=== PATIENT | female | born 1960 | race Caucasian/White ===

== ENCOUNTER 2018-08-30 19:36 | Emergency (ER) | payer SELFPAY ==
[~2018-08-30] VITALS: Ht 182.9 cm; Wt 94.4 kg
[2018-08-30 19:38] VITALS: BP 176/94
[2018-08-30] MEDS ORDERED: BENAZ (19:39)
[2018-08-30] MEDS ORDERED: QVAR (19:39)
[2018-08-30] MEDS ORDERED: FLONASE (19:39)
[2018-08-30] MEDS ORDERED: ALBUTEROL/IPRATROPIUM 2.5MG/0.5MG, 3 ML NPPB ONE (20:00)
[2018-08-30] MEDS ORDERED: ALBUTEROL/IPRATROPIUM 2.5MG/0.5MG, 3 ML ONE (20:13)
== END 2018-08-30 21:49 | disposition home or self-care (01) ==
LOC: ED 20:50
DX: J20.9 Acute bronchitis, unspecified (principal); J45.909 Unspecified asthma, uncomplicated; H66.91 Otitis media, unspecified, right ear; Z87.891 Personal history of nicotine dependence
CPT/HCPCS: 71046; 94640; 99283; J7620

== ENCOUNTER 2020-01-01 06:21 | Emergency (ER) | payer MEDICARE ==
[~2020-01-01] VITALS: Ht 182.9 cm; Wt 96.2 kg
[~2020-01-01 06:21] MED LIST: BENAZ; FLONASE; QVAR
--- NOTE | 2020-01-01 06:46 | NUR ---
Patient presents to ER c/o RLQ abd pain x2 days. Patient states she has a hx of liver problems but this pain is just below it. Patient c/o nausea and diarrhea. Denies vomiting. Pain does not radiate. It is constant and movement makes the pain worse. Patient is in NAD. Respirations even and unlabored.
[2020-01-01] MEDS ORDERED: SODIUM CHLORIDE 0.9% 1,000ML IVBOLUS ONE (07:00)
[2020-01-01] MEDS ORDERED: MORPHINE SULFATE 4 MG/ML, 1ML IVPush PRN (07:00)
[2020-01-01] MEDS ORDERED: ONDANSETRON 2MG/ML, 2ML IVPush ONE (07:00)
[2020-01-01] MEDS ORDERED: SODIUM CHLORIDE FLUSH 10ML SYR IVF ONE (07:00)
[2020-01-01] MEDS ORDERED: ONDANSETRON 2MG/ML, 2ML ONE (07:06)
[2020-01-01] MEDS ORDERED: MORPHINE SULFATE 4 MG/ML, 1ML ONE (07:06)
--- NOTE | 2020-01-01 07:10 | NUR ---
received report from kiara ch.
[2020-01-01 07:18] LABS: MICROSCOPIC INDICATED
[2020-01-01 07:38] LABS: HCG UR SG 1.033 (1.003-1.030)
[2020-01-01 07:48] LABS: BASOPHILS # (AUTO) 0.03 x10^3/uL (0-0.1); BASOPHILS % (AUTO) 0 % (0-1); EOSINOPHILS # (AUTO) 0.78 x10^3/uL (0-0.4); EOSINOPHILS % (AUTO) 8 % (1-7); LYMPHOCYTES # (AUTO) 1.88 x10^3/uL (1-3.4); LYMPHOCYTES % (AUTO) 19 % (22-44); MD NO; MEAN CORPUSCULAR HEMOGLOBIN 29.7 pg (27.0-34.8); MEAN CORPUSCULAR HGB CONC 33.4 g/dL (32.4-35.8); MEAN CORPUSCULAR VOLUME 88.9 fL (80-100); MONOCYTES # (AUTO) 0.84 x10^3/uL (0.2-0.8); MONOCYTES % (AUTO) 8 % (2-9); NEUTROPHILS # (AUTO) 6.46 x10^3/uL (1.8-6.8); NEUTROPHILS % (AUTO) 65 % (42-75); PLATELET COUNT 242 x10^3/uL (130-400); RED BLOOD COUNT 4.41 x10^6/uL (3.82-5.3); RED CELL DISTRIBUTION WIDTH 14.3 % (9.6-15.2)
[2020-01-01] MEDS ORDERED: HYDROmorphone 1 MG/ML, 1ML INJ ONE (07:50)
[2020-01-01 07:59] LABS: CULTURE INDICATED? YES
[2020-01-01 08:00] LABS: ALANINE AMINOTRANSFERASE 18 U/L (12-78); ALBUMIN 3.5 g/dL (3.4-5.0); ANION GAP 5 mmol/L (5-15); CALCIUM 8.8 mg/dL (8.5-10.1); CHLORIDE 109 mmol/L (98-107); CREATININE 1.14 mg/dL (0.55-1.02)
[2020-01-01] MEDS ORDERED: HYDROmorphone 1 MG/ML, 1ML INJ IV ONE (08:00)
[2020-01-01 08:02] LABS: ALKALINE PHOSPHATASE 88 U/L (45-117); BILIRUBIN,TOTAL 0.2 mg/dL (0.2-1.0); TOTAL PROTEIN 7.3 g/dL (6.4-8.2)
--- NOTE | 2020-01-01 08:19 | NUR ---
pt on phone, vss, respirations even and unlabored, no signs of distress.
--- NOTE | 2020-01-01 08:25 | NUR ---
BREAK RN FOR PRIMARY RN'S MARICARMEN. PT RESTING COMFORTABLY ON ED GURNERY PLAYING WITH OWN CELL PHONE. ALL NEEDS MET AND ADDRESSED, AWAITING RECHECK FROM ERP. VSS. FALL PRECAUTIONS IN PLACE. CALL LIGHT IN REACH
--- NOTE | 2020-01-01 08:37 | NUR ---
REPORT AND CARE BACK TO PRIMARY RN'S MARICARMEN AT THIS TIME.
--- NOTE | 2020-01-01 09:06 | NUR ---
PT SITTING IN BED ON PHONE, NO SIGNS OF DISTRESS, RESPIRATIONS EVEN AND UNLABORED, NO SIGNS OF DISTRESS.
--- NOTE | 2020-01-01 09:13 | NUR ---
pt to ct.
[2020-01-01] MEDS ORDERED: OMNIPAQUE 350 MG/ML, 100ML BOTTLE ONE (09:44)
--- NOTE | 2020-01-01 10:05 | NUR ---
PT CONDITION REMAINS THE SAME, WILL CONTINUE TO MONITOR.
[2020-01-01 10:56] VITALS: BP 108/68
== END 2020-01-01 10:59 | disposition home or self-care (01) ==
LOC: ED 07:50
DX: R10.11 Right upper quadrant pain (principal); R19.7 Diarrhea, unspecified; R11.0 Nausea; R93.5 Abnormal findings on diagnostic imaging of other abdominal regions, including retroperitoneum; R00.0 Tachycardia, unspecified
CPT/HCPCS: 36415; 74177; 80053; 81001; 81025; 83690; 85025; 87086; 96374; 96375; 99285; J1170; J2405; Q9967; J7030

== ENCOUNTER 2020-08-27 10:04 | Emergency (ER) | payer MEDICARE ==
[~2020-08-27] VITALS: Ht 182.9 cm; Wt 103.7 kg
--- NOTE | 2020-08-27 10:24 | NUR ---
THIS IS A 60 YEAR OLD FEMALE WHO C/O OF "BACK IN FEBRUARY GROWTH ADRENAL GLANDS AND SPLEEN. C/O RT FLANK PAIN TRAVELING TO STOMACH. HURTS TO GO TO BATHROOM"
[2020-08-27] MEDS ORDERED: SODIUM CHLORIDE FLUSH 10ML SYR IVF ONE (11:00)
[2020-08-27 11:11] LABS: MICROSCOPIC NOT IND
--- NOTE | 2020-08-27 11:11 | NUR ---
PIV STARTED, PT RESTING AT THIS TIME, VERBALIZED NO ADDITIONAL NEEDS
[2020-08-27 11:19] LABS: BASOPHILS % (AUTO) 1 % (0-1); EOSINOPHILS % (AUTO) 5 % (1-7); LYMPHOCYTES % (AUTO) 14 % (22-44); MEAN CORPUSCULAR HEMOGLOBIN 29.1 pg (27.0-34.8); MEAN CORPUSCULAR HGB CONC 33.4 g/dL (32.4-35.8); MEAN PLATELET VOLUME 9.4 fL (7.4-10.4); MONOCYTES % (AUTO) 11 % (2-9); NEUTROPHILS % (AUTO) 69 % (42-75); PLATELET COUNT 224 x10^3/uL (130-400); RED BLOOD COUNT 4.48 x10^6/uL (3.82-5.3); RED CELL DISTRIBUTION WIDTH 14.7 % (9.6-15.2)
[2020-08-27 11:21] LABS: ALANINE AMINOTRANSFERASE 23 U/L (12-78); ALBUMIN 3.6 g/dL (3.4-5.0); ANION GAP 6 mmol/L (5-15); CALCIUM 8.7 mg/dL (8.5-10.1); CHLORIDE 114 mmol/L (98-107)
[2020-08-27 11:23] LABS: MD NO
[2020-08-27 11:24] LABS: ALKALINE PHOSPHATASE 79 U/L (45-117); BILIRUBIN,TOTAL 0.5 mg/dL (0.2-1.0); TOTAL PROTEIN 7.3 g/dL (6.4-8.2)
--- NOTE | 2020-08-27 11:53 | NUR ---
PT RESTING, STATES SHE HAS SOME SHARP ABD PAINS, NOTIFIED
[2020-08-27] MEDS ORDERED: ONDANSETRON 2MG/ML, 2ML ONE (11:56)
[2020-08-27] MEDS ORDERED: HYDROmorphone 1 MG/ML, 1ML INJ ONE (11:56)
--- NOTE | 2020-08-27 11:59 | NUR ---
MEDICATED PER MAR, PAIN IS 10/10 ABD PAIN
[2020-08-27] MEDS ORDERED: ONDANSETRON 2MG/ML, 2ML IVPush ONE (12:00)
[2020-08-27] MEDS ORDERED: HYDROmorphone 2 MG/ML, 1ML IVPush PRN (12:00)
--- NOTE | 2020-08-27 12:14 | NUR ---
PT SLEEPING RESP EVEN AND UNLABORED
[2020-08-27] MEDS ORDERED: OMNIPAQUE 350 MG/ML, 100ML BOTTLE ONE (13:00)
[2020-08-27 13:01] VITALS: BP 134/60
--- NOTE | 2020-08-27 13:01 | NUR ---
Patient/Caregiver given discharge instructions and they have confirmed that they understand the instructions. Patient ambulatory with steady gait.
== END 2020-08-27 13:03 | disposition home or self-care (01) ==
LOC: ED 11:22
DX: S39.012A Strain of muscle, fascia and tendon of lower back, initial encounter (principal); R10.84 Generalized abdominal pain; X58.XXXA Exposure to other specified factors, initial encounter; Y93.89 Activity, other specified; Y92.89 Other specified places as the place of occurrence of the external cause; Y99.8 Other external cause status
CPT/HCPCS: 36415; 74177; 80053; 81003; 83690; 85025; 96374; 96375; 99285; J1170; J2405; Q9967